=== PATIENT | male | born 2000 | race Caucasian/White ===

== ENCOUNTER 2020-04-20 14:14 | Emergency (ER) | payer BC ==
[~2020-04-20] VITALS: Ht 170.2 cm; Wt 68.2 kg
[2020-04-20 14:16] VITALS: TEMP 98.8
[2020-04-20 14:57] LABS: BASO # 0.1 (0.0-0.2); BASO % 0.3 % (0.0-2.0); GRAN # 13.9 (1.4-6.5); HEMATOCRIT 46.1 % (42.0-52.0); HEMOGLOBIN 15.5 g/dl (13.5-18.0); LYMPH # 0.9 (1.2-3.4); LYMPH % 5.7 % (20.0-51.0); MEAN CELL VOLUME 87 fl (80.0-100.0); MEAN CORPUSCULAR HEMOGLOBIN 29 pg (27.0-31.0); MEAN CORPUSCULAR HGB CONC 34 g/dl (33.0-37.0); MEAN PLATELET VOLUME 9.8 fl (7.4-10.4); MONO # 1.4 (0.1-0.6); MONO % 8.7 % (1.7-9.3); PLATELET COUNT 271 K/mm3 (130-400); RED BLOOD COUNT 5.28 M/mm3 (4.20-5.60); REDCELL DISTRIBUTION WIDTH-CV 12.3 % (11.5-14.5)
[2020-04-20 14:59] LABS: COLLECTION METHOD CLEAN CATCH
[2020-04-20 15:07] LABS: ALBUMIN 4.8 gm/dL (3.5-5.0); BILIRUBIN,TOTAL 1.7 mg/dL (0.0-1.0); CALCIUM 9.8 mg/dL (8.4-10.2); CREATININE, serum 0.87 (0.66-1.25); POTASSIUM 3.9 mmol/L (3.4-5.0); TOTAL PROTEIN 8.3 gm/dL (6.4-8.2)
[2020-04-20 15:09] LABS: AMORPHOUS CRYSTAL Present /uL; MUCOUS Present /lpf; PH 6 (5-8); SQUAMOUS EPITHELIAL None Seen /hpf; URINE APPEARANCE Hazy; URINE BACTERIA None Seen /hpf; URINE BILIRUBIN Negative (NEGATIVE); URINE BLOOD Negative (NEGATIVE); URINE COLOR Yellow; URINE GLUCOSE Negative (NEGATIVE); URINE KETONE Trace (NEGATIVE); URINE LEUKOCYTE ESTERASE Negative (NEGATIVE); URINE NITRATE Negative (NEGATIVE); URINE PROTEIN(semi-quant) Negative (NEGATIVE); URINE RBC 0-2 /hpf; URINE UROBILINOGEN Negative (NEGATIVE)
[2020-04-20] MEDS ORDERED: ZOFRAN ODT4 MG PO (16:18)
[2020-04-20] MEDS ORDERED: PERCOCET 325 MG1 TA2 PO (16:18)
[2020-04-20 16:27] VITALS: BP 131/94; PULSE 92
== END 2020-04-20 16:30 | disposition home or self-care (01) ==
LOC: COL.ER 14:14
PROVIDERS: Physician Assistant
DX: K85.90 Acute pancreatitis without necrosis or infection, unspecified (principal)
CPT/HCPCS: J1885; J7030; Q9967

== ENCOUNTER → 2020-06-04 | Outpatient (CLI) | payer BC ==
[~2020-06-04] MED LIST: PERCOCET 325 MG1 TA2 PO; ZOFRAN ODT4 MG PO
== END ==
LOC: COL.RAD 06:55
DX: R11.14 Bilious vomiting (principal); R10.11 Right upper quadrant pain